=== PATIENT | male | born 1955 | race Hispanic/Latino ===

== ENCOUNTER → 2021-01-26 | Day surgery (SDC) | payer OTHER ==
[2021-01-26 14:39] VITALS: BP 113/71
== END | disposition home or self-care (01) ==
LOC: OR 11:51
PROVIDERS: ATTEND Internal Medicine Gastroenterology
DX: Z12.11 Encounter for screening for malignant neoplasm of colon (principal); K64.8 Other hemorrhoids; Z90.49 Acquired absence of other specified parts of digestive tract; Z01.810 Encounter for preprocedural cardiovascular examination; Z01.812 Encounter for preprocedural laboratory examination; Z20.822 Contact with and (suspected) exposure to COVID-19
CPT/HCPCS: 45378; 93005; U0002